=== PATIENT | female | born 1940 | race Caucasian/White ===

== ENCOUNTER 2016-10-05 19:11 | Emergency (ER) | payer OTHER ==
[2016-10-19] MEDS ORDERED: LOPRESSOR50 MG PO (07:27)
[2016-10-19] MEDS ORDERED: XARELTO15 MG PO (07:27)
[2016-10-19] MEDS ORDERED: NORCO 5-325 TA1 EACH PO (07:27)
[2016-10-19] MEDS ORDERED: ATIVAN0.5 M1 PO (07:27)
[2016-10-19] MEDS ORDERED: LACTINEX1 EACH PO (07:28)
[2016-10-19] MEDS ORDERED: HEPARIN 3010 UNIT/1 IV (07:28)
[2016-10-19] MEDS ORDERED: COLACE100 MG PO (07:29)
[2016-10-19] MEDS ORDERED: MUCINEX 600MG600 MG PO (07:29)
[2016-10-19] MEDS ORDERED: MOBIC7.5 M1 PO (07:29)
[2016-10-19] MEDS ORDERED: LAXATIVE SUPPOS10 MG PO (07:29)
[2016-10-19] MEDS ORDERED: ACETAMINOPHEN325 MG PO (07:30)
[2016-10-19] MEDS ORDERED: PROTONIX 40MG T40 MG PO (07:30)
[2016-10-19] MEDS ORDERED: LASIX20 MG PO (07:30)
[2016-10-19] MEDS ORDERED: NEURONTIN300 MG PO (07:30)
[2016-10-19] MEDS ORDERED: ZOFRAN4 MG PO (07:30)
[2016-10-19] MEDS ORDERED: K-DUR20 MEQ PO (07:30)
[2016-10-19] MEDS ORDERED: MILK OF MA400 MG/5 M PO (07:31)
[2016-10-19] MEDS ORDERED: CERTAGEN1 EACH PO (07:31)
[2016-10-19] MEDS ORDERED: BENADRYL25 MG PO (07:34)
[2016-10-19] MEDS ORDERED: MLYLANTA/MAALOX30 ML PO (07:34)
[2016-10-19] MEDS ORDERED: FORTAZ1 GM IV (07:35)
[2016-10-19] MEDS ORDERED: DUONEB 2.5-0.5M1 AMP NEB (07:35)
[2016-10-19] MEDS ORDERED: NEBCIN80 MG/2 ML IV (07:36)
== END 2016-10-05 23:47 ==
LOC: FER 19:11
DX: S39.012A Strain of muscle, fascia and tendon of lower back, initial encounter (principal); S20.219A Contusion of unspecified front wall of thorax, initial encounter; J44.9 Chronic obstructive pulmonary disease, unspecified; Z85.3 Personal history of malignant neoplasm of breast; Z88.1 Allergy status to other antibiotic agents; V49.50XA Passenger injured in collision with unspecified motor vehicles in traffic accident, initial encounter; Y92.410 Unspecified street and highway as the place of occurrence of the external cause
CPT/HCPCS: 71010; 72110; 93005; 94640; J2270; J2405; J2930

== ENCOUNTER 2016-10-09 20:57 | Inpatient (IN) | payer MEDICARE, OTHER ==
[~2016-10-09] VITALS: Ht 162.6 cm; Wt 64.2 kg
[2016-10-09 21:27] LABS: BASOPHIL 0.1 % (0-2); EOSINOPHIL 0.2 % (0-7); HCT 37.9 % (37.0-47.0); HGB 12.2 g/dl (12.5-16.0); LYMPHOCYTE 8.4 % (15-48); MCH 26.5 pg (25.0-31.0); MCHC 32.2 g/dL (32.0-36.0); MCV 82.4 fL (78.0-100.0); MONOCYTE 5.7 % (0-12); MPV 8.8 fL (6.0-9.5); NEUTROPHIL 85.6 % (41-80); PLT 467 K/uL (150-400); RDW 17.4 % (11.5-14.0); WBC 15.9 K/uL (4.0-10.5)
[2016-10-09 21:32] LABS: INR 1.2 (0.9-1.2); PROTHROMBIN TIME 14.8 SECONDS (11.7-14.0)
[2016-10-09 21:33] LABS: PTT 29.7 SECONDS (23.2-31.4)
[2016-10-09 21:34] LABS: D-DIMER 3.3 ug/mLFEU (0.00-0.41)
[2016-10-09 22:16] LABS: ALBUMIN 2.3 g/dL (3.4-4.8); BILIRUBIN - TOTAL 0.7 mg/dL (0.1-1.0); CREATININE 0.6 mg/dL (0.5-1.0); GLOBULIN (CALCULATION) 3.7 g/dL (2.2-4.2); POTASSIUM 3.8 mmol/L (3.5-5.1)
[2016-10-09 22:18] LABS: LACTIC ACID 3.8 mmol/L (0.5-2.2)
[2016-10-09 22:22] LABS: CKMB 1.51 ng/mL (0.97-4.94); TROPONIN T < 0.010 ng/mL
[2016-10-09 22:49] LABS: BILIRUBIN NEGATIVE (NEGATIVE); BLOOD 1+ Ery/uL (NEGATIVE); CLARITY SLIGHTLY HAZY (CLEAR); COLOR YELLOW (YELLOW); GLUCOSE (U) NORMAL (NORMAL); KETONE (U) NEGATIVE (NEGATIVE); LEUKOCYTES 3+ Leu/uL (NEGATIVE); NITRITE NEGATIVE (NEGATIVE); PROTEIN NEGATIVE (NEGATIVE); SPECIFIC GRAVITY <=1.005 (1.001-1.030)
[2016-10-09 22:53] LABS: BACTERIA 4+; SQUAMOUS EPITHELIAL CELLS RARE
[2016-10-10 02:18] LABS: BASOPHIL 0.1 % (0-2); EOSINOPHIL 0 % (0-7); HCT 34.6 % (37.0-47.0); HGB 10.9 g/dl (12.5-16.0); LYMPHOCYTE 1.7 % (15-48); MCH 26.3 pg (25.0-31.0); MCHC 31.5 g/dL (32.0-36.0); MCV 83.4 fL (78.0-100.0); MONOCYTE 2.5 % (0-12); MPV 8.9 fL (6.0-9.5); NEUTROPHIL 95.7 % (41-80); PLT 415 K/uL (150-400); RBC 4.15 M/uL (4.20-5.40); RDW 17.3 % (11.5-14.0)
[2016-10-10 02:20] LABS: WBC 14.8 K/uL (4.0-10.5)
[2016-10-10 02:44] LABS: ALBUMIN 2.2 g/dL (3.4-4.8); BILIRUBIN - TOTAL 0.7 mg/dL (0.1-1.0); CREATININE 0.5 mg/dL (0.5-1.0); GLOBULIN (CALCULATION) 3.6 g/dL (2.2-4.2); MAGNESIUM 1.78 mg/dL (1.40-2.10); POTASSIUM 3.6 mmol/L (3.5-5.1); TOTAL PROTEIN 5.8 g/dL (6.4-8.3)
[2016-10-10 02:46] LABS: CKMB 1.54 ng/mL (0.97-4.94); TROPONIN T < 0.010 ng/mL
[2016-10-10 09:31] LABS: CKMB 1.49 ng/mL (0.97-4.94); TROPONIN T < 0.010 ng/mL
[2016-10-11 03:47] LABS: BASOPHIL 0.1 % (0-2); EOSINOPHIL 0 % (0-7); HCT 29.9 % (37.0-47.0); HGB 9.5 g/dl (12.5-16.0); LYMPHOCYTE 4.8 % (15-48); MCH 26.5 pg (25.0-31.0); MCHC 31.8 g/dL (32.0-36.0); MCV 83.5 fL (78.0-100.0); MONOCYTE 6.9 % (0-12); MPV 8.7 fL (6.0-9.5); NEUTROPHIL 88.2 % (41-80); PLT 463 K/uL (150-400); RBC 3.58 M/uL (4.20-5.40); RDW 17.4 % (11.5-14.0); WBC 12.1 K/uL (4.0-10.5)
[2016-10-11 04:02] LABS: CREATININE 0.4 mg/dL (0.5-1.0); MAGNESIUM 2.09 mg/dL (1.40-2.10)
--- NOTE | 2016-10-12 05:21 | NUR ---
LATE ENTRY: PT C/O CHEST PAIN "SORENESS". NOTIFIED MERGERS AND ACQUISITIONS BANKER@[id number] AND OBTAINED ORDER FOR TROPONIN ONLY. RESULTS WERE NEGATIVE. PT WAS GIVEN NORCO 1TAB PO AND IS RESTING COMFORTABLY, NO FURTHER COMPLAINTS VERBALIZED.
--- NOTE | 2016-10-12 18:26 | NUR ---
10/12/16 1430 PICC LINE PROCEDURE EXPLAINED. CONSENT SIGNED. BASILIC VEIN ON RIGHT UPPER ARM VISUALIZED UNING THE SITE [employer] MACHINE. PT'S ARMS CLEANSED AND PT DRAPED IN PROCEDURE DONE IN STERILE FASHION. AREA NUMBED WITH 1% 1CC LIDOCAINE. A 21GA NEEDLE WAS USED. GUIDE WIRE THREADED EASILY. GOOD BLOOD RETURN NOTED. PICC TRIMMED AT 40CM. INSERTION 0CM. BICEP 26CM. CONTINUES TO HAVE GOOD BLOOD RETURN. PICC LINE DRESSING APPLIED. CHEST X-RAY OBTAINED. 1530 PICC LINE IN SVC PER RADIOLOGIST. STYLET REMOVED. END CAP PLACED ON PICC FLUSHED WITH 10CC NS. TAKEN BACK UP STAIRS TO PR VIA BED. ASSISTED TO BSC WITH 2 RN'S. REPORT TO ASSISTANT OFFICE MANAGER AND TO Gianfranco GALLOWAY RN. PT TOLERATED PROCEDURE WITHOUT DIFFICULTY.
[2016-10-13 00:52] LABS: RETICULOCYTE COUNT 1.3 % (1.0-2.0)
[2016-10-13 01:29] LABS: IRON 23 ug/dL (44-196); IRON % SATURATION 13 %SAT (20-50); TIBC (TOTAL IRON + UIBC) 174 U/L (228-428); UIBC 151 ug/dL (112-346)
[2016-10-13 02:18] LABS: FOLIC ACID (SERUM) 7.8 ng/mL (5.6-45.8)
[2016-10-13 11:24] LABS: BASOPHIL 0.2 % (0-2); EOSINOPHIL 1.9 % (0-7); HCT 35.3 % (37.0-47.0); HGB 11.3 g/dl (12.5-16.0); LYMPHOCYTE 10.3 % (15-48); MCH 26.5 pg (25.0-31.0); MCV 82.9 fL (78.0-100.0); MONOCYTE 4.7 % (0-12); MPV 8.5 fL (6.0-9.5); NEUTROPHIL 82.9 % (41-80); PLT 616 K/uL (150-400); RBC 4.26 M/uL (4.20-5.40); RDW 17.4 % (11.5-14.0)
[2016-10-13 11:26] LABS: WBC 17.2 K/uL (4.0-10.5)
[2016-10-13 11:31] LABS: ALBUMIN 2.6 g/dL (3.4-4.8); BILIRUBIN - TOTAL 0.3 mg/dL (0.1-1.0); CREATININE 0.5 mg/dL (0.5-1.0); GLOBULIN (CALCULATION) 3.4 g/dL (2.2-4.2); POTASSIUM 4.6 mmol/L (3.5-5.1)
[2016-10-14 04:52] LABS: BASOPHIL 0.5 % (0-2); EOSINOPHIL 4.8 % (0-7); HCT 34.2 % (37.0-47.0); HGB 10.9 g/dl (12.5-16.0); MCH 26.3 pg (25.0-31.0); MCHC 31.9 g/dL (32.0-36.0); MCV 82.4 fL (78.0-100.0); MONOCYTE 6.1 % (0-12); MPV 8.4 fL (6.0-9.5); NEUTROPHIL 68.6 % (41-80); PLT 633 K/uL (150-400); RBC 4.15 M/uL (4.20-5.40); RDW 17.4 % (11.5-14.0)
[2016-10-14 04:53] LABS: WBC 12.1 K/uL (4.0-10.5)
[2016-10-14 05:25] LABS: CREATININE 0.6 mg/dL (0.5-1.0); POTASSIUM 4.2 mmol/L (3.5-5.1)
[2016-10-16 05:34] LABS: BASOPHIL 0.3 % (0-2); EOSINOPHIL 5.3 % (0-7); HCT 30.8 % (37.0-47.0); HGB 9.8 g/dl (12.5-16.0); LYMPHOCYTE 17.2 % (15-48); MCH 26.2 pg (25.0-31.0); MCHC 31.8 g/dL (32.0-36.0); MCV 82.4 fL (78.0-100.0); MONOCYTE 7.2 % (0-12); MPV 8.3 fL (6.0-9.5); PLT 617 K/uL (150-400); RBC 3.74 M/uL (4.20-5.40); RDW 17.9 % (11.5-14.0); WBC 10.6 K/uL (4.0-10.5)
[2016-10-16 06:00] LABS: CREATININE 0.5 mg/dL (0.5-1.0); MAGNESIUM 1.69 mg/dL (1.40-2.10); POTASSIUM 4.1 mmol/L (3.5-5.1)
[2016-10-17 04:38] LABS: HCT 30.4 % (37.0-47.0); HGB 9.5 g/dl (12.5-16.0); MCHC 31.3 g/dL (32.0-36.0); MCV 83.3 fL (78.0-100.0); MPV 8.2 fL (6.0-9.5); RBC 3.65 M/uL (4.20-5.40); RDW 17.9 % (11.5-14.0); WBC 9.9 K/uL (4.0-10.5)
[2016-10-17 04:54] LABS: CREATININE 0.6 mg/dL (0.5-1.0); MAGNESIUM 1.66 mg/dL (1.40-2.10); POTASSIUM 4.1 mmol/L (3.5-5.1)
[2016-10-18 02:37] LABS: BASOPHIL 0.5 % (0-2); EOSINOPHIL 3.4 % (0-7); HGB 9.8 g/dl (12.5-16.0); MCH 26.2 pg (25.0-31.0); MCHC 31.6 g/dL (32.0-36.0); MCV 82.9 fL (78.0-100.0); MONOCYTE 6.7 % (0-12); NEUTROPHIL 71.4 % (41-80); PLT 627 K/uL (150-400); RBC 3.74 M/uL (4.20-5.40); RDW 18.1 % (11.5-14.0)
[2016-10-18 02:57] LABS: CREATININE 0.6 mg/dL (0.5-1.0); MAGNESIUM 1.74 mg/dL (1.40-2.10); PHOSPHORUS 4.4 mg/dL (2.7-4.5); POTASSIUM 4.1 mmol/L (3.5-5.1)
[2016-10-18 03:13] LABS: WBC 12.3 K/uL (4.0-10.5)
[2016-10-19] MEDS ORDERED: XARELTO15 MG PO (07:27)
[2016-10-19] MEDS ORDERED: NORCO 5-325 TA1 EACH PO (07:27)
[2016-10-19] MEDS ORDERED: LOPRESSOR50 MG PO (07:27)
[2016-10-19] MEDS ORDERED: ATIVAN0.5 M1 PO (07:27)
[2016-10-19] MEDS ORDERED: HEPARIN 3010 UNIT/1 IV (07:28)
[2016-10-19] MEDS ORDERED: LACTINEX1 EACH PO (07:28)
[2016-10-19] MEDS ORDERED: COLACE100 MG PO (07:29)
[2016-10-19] MEDS ORDERED: MOBIC7.5 M1 PO (07:29)
[2016-10-19] MEDS ORDERED: LAXATIVE SUPPOS10 MG PO (07:29)
[2016-10-19] MEDS ORDERED: MUCINEX 600MG600 MG PO (07:29)
[2016-10-19] MEDS ORDERED: K-DUR20 MEQ PO (07:30)
[2016-10-19] MEDS ORDERED: ACETAMINOPHEN325 MG PO (07:30)
[2016-10-19] MEDS ORDERED: PROTONIX 40MG T40 MG PO (07:30)
[2016-10-19] MEDS ORDERED: LASIX20 MG PO (07:30)
[2016-10-19] MEDS ORDERED: ZOFRAN4 MG PO (07:30)
[2016-10-19] MEDS ORDERED: NEURONTIN300 MG PO (07:30)
[2016-10-19] MEDS ORDERED: CERTAGEN1 EACH PO (07:31)
[2016-10-19] MEDS ORDERED: MILK OF MA400 MG/5 M PO (07:31)
[2016-10-19] MEDS ORDERED: BENADRYL25 MG PO (07:34)
[2016-10-19] MEDS ORDERED: MLYLANTA/MAALOX30 ML PO (07:34)
[2016-10-19] MEDS ORDERED: FORTAZ1 GM IV (07:35)
[2016-10-19] MEDS ORDERED: DUONEB 2.5-0.5M1 AMP NEB (07:35)
[2016-10-19] MEDS ORDERED: NEBCIN80 MG/2 ML IV (07:36)
== END 2016-10-18 17:06 | DRG 871 ==
LOC: FER 20:57 → FICU 10-10 01:00 → FMS 10-10 01:00
PROVIDERS: Emergency Medicine Emergency Medical Services; Internal Medicine Nephrology; ADMIT Internal Medicine
PROC: 02HV33Z Insertion of Infusion Device into Superior Vena Cava, Percutaneous Approach (ICD-10-PCS; principal; 2016-10-12)
DX: A41.9 Sepsis, unspecified organism (principal); J15.1 Pneumonia due to Pseudomonas; I26.99 Other pulmonary embolism without acute cor pulmonale; E87.2 Acidosis; R13.10 Dysphagia, unspecified; J44.9 Chronic obstructive pulmonary disease, unspecified; J44.0 Chronic obstructive pulmonary disease with (acute) lower respiratory infection; N30.01 Acute cystitis with hematuria; R65.20 Severe sepsis without septic shock; M54.5 Low back pain; J45.909 Unspecified asthma, uncomplicated; M81.0 Age-related osteoporosis without current pathological fracture; K57.30 Diverticulosis of large intestine without perforation or abscess without bleeding; K46.9 Unspecified abdominal hernia without obstruction or gangrene; E78.5 Hyperlipidemia, unspecified; D50.9 Iron deficiency anemia, unspecified; B96.1 Klebsiella pneumoniae [K. pneumoniae] as the cause of diseases classified elsewhere; Z85.3 Personal history of malignant neoplasm of breast; Z88.0 Allergy status to penicillin; Z88.1 Allergy status to other antibiotic agents; Z88.2 Allergy status to sulfonamides; Z79.899 Other long term (current) drug therapy
CPT/HCPCS: 36415; 36600; 71010; 71020; 71275; 80048; 80053; 80200; 81001; 82150; 82550; 82553; 82607; 82728; 82746; 82803; 83540; 83550; 83605; 83735; 83880; 84100; 84145; 84484; 85025; 85044; 85379; 85610; 85730; 87040; 87070; 87076; 87077; 87088; 87186; 87205; 92526; 93005; 94010; 94640; 94664; 94667; 94668; 94760; 97110; 97116; 97163; 97166; 97530; 97530-GP; 97535; C1751; J0456; J1940; J2916; J2930; J3260; J3370; Q9967